=== PATIENT | female | born 1985 | race Caucasian/White ===

== ENCOUNTER 2022-06-12 11:55 | Outpatient (REF) | payer OTHER, SELFPAY ==
--- NOTE | 2022-06-12 10:30 | EMG_ITS ---
Please see scanned EMG / Nerve Conduction Report. MTDD
== END 2022-06-12 11:56 | disposition home or self-care (01) ==
LOC: HO.NEURO 11:55
PROVIDERS: PCP Internal Medicine; Visit Provider Internal Medicine
DX: R20.0 Anesthesia of skin (principal); M25.531 Pain in right wrist; M25.532 Pain in left wrist
CPT/HCPCS: 95885; 95913